=== PATIENT | female | born 1975 | race Caucasian/White ===

== ENCOUNTER 2016-12-09 18:51 | Emergency (ER) | payer BC ==
--- NOTE | 2016-12-15 08:46 | ER ---
ADMIT: 12/09/2016 RM/LOC: ER [facility] MR#: [id number] [address] [id number] [address] [place], [place] [id number] Emergency Room Report SEX: F AGE: 41 : 1975 DATE: 12/09/2016 BRIEF ADDENDUM: Please see my T-sheet for complete review of systems, past medical history, and physical exam. CHIEF COMPLAINT: Today is cough and sore throat. HISTORY OF PRESENT ILLNESS: This is a 41-year-old white female, who presents with 5 days duration of cough and sore throat. The patient states it started Saturday with a cough and sinus congestion. She has been using Tylenol and ibuprofen as well as nxal-egm-medirdy Sudafed for symptom improvement. States she initially got better, was able return to work on Saturday and . She states she acutely got worse on Saturday with increased throat pain and started spiking fevers greater than 101 degrees Fahrenheit. States she was able to get the fever under control with Tylenol and ibuprofen throughout the weekend and had an appointment tomorrow morning to see primary care provider, but states fever returned today and so she is concerned for pneumonia. Admits to fever, chills, sweating, bilateral ear pain, sinus drainage, sore throat, cough, shortness of breath. States she feels very weak. Denies any muscle pain. Denies taking any ibuprofen or Tylenol today. COURSE IN THE EMERGENCY ROOM: The patient was seen and examined. She is febrile, temp 101.7. Blood pressure is stable. She is slightly tachycardic at 113, however, settles into the 90s. She is in no acute distress. She is alert, she does have some frontal maxillary pain with percussion as well as some significant left-sided mucosal edema in the nose. Her throat is mildly erythematous. There are no gross exudates. Neck is soft and supple. No lymphadenopathy. No respiratory distress. Breath sounds are clear. Abdomen is soft and nontender. Heart is regular. Skin is warm and dry. Slightly diaphoretic. Extremities, no pedal edema. I did get a chest x-ray on her, negative for any acute infiltrate. Also got a rapid strep on her, negative for strep pharyngitis. IMPRESSION: Acute sinusitis. DISPOSITION: Patient was started on Augmentin 875 mg 1 tab p.o. b.i.d. x5 days. She is to increase her fluids as tolerated. Finish the entire course of antibiotics. She should follow up with her primary care provider if she is not improving. Questions sought and answered to best of my ability and the patient's satisfaction. Discharged in stable condition. PEREZ Miner / Radames Whatley MD / sheila JOB #: [id number] CC: Peter Nails MD, Attending Physician
== END 2016-12-09 20:00 | disposition home or self-care (01) ==
LOC: ER 18:51
DX: J01.90 Acute sinusitis, unspecified (principal); F31.9 Bipolar disorder, unspecified; F32.9 Major depressive disorder, single episode, unspecified; Z88.2 Allergy status to sulfonamides; Z79.899 Other long term (current) drug therapy